=== PATIENT | female | born 1945 | race Caucasian/White ===

== ENCOUNTER 2016-04-01 17:28 | Emergency (ER) | payer MEDICARE, OTHER ==
--- NOTE | 2016-04-01 18:01 | ERNOTE ---
Medical Problem HPI - Narrative Date of Service: 04/01/16 - General Chief Complaint: General Assessment Time Seen by Provider: 04/01/16 17:50 Source: patient Exam Limitations: no limitations - Immun/Allergies/Home Medications Immunizations: IMMUNIZATION HX Immunizations Up to Date Yes History of Influenza Vaccine Yes Hx Pneumococcal Vaccination No Allergies/Adverse Reactions: Allergies cimetidine [From Tagamet] Allergy (Severe, Verified 04/01/16 17:37) rash, throat swells cimetidine HCl [From Tagamet] Allergy (Verified 04/01/16 17:37) famotidine [From Pepcid] Allergy (Verified 04/01/16 17:37) rash, throat swells omeprazole [From Prilosec] Allergy (Verified 04/01/16 17:37) Itching omeprazole magnesium [From Prilosec] Allergy (Verified 04/01/16 17:37) Itching ranitidine HCl [From Zantac] Allergy (Verified 04/01/16 17:37) rash; throat swells tagament Allergy (Uncoded 04/01/16 17:37) rash; throat swells laundry soaps Adverse Reaction (Mild, Uncoded 04/01/16 17:37) RASH Home Medications: HOME MEDICATIONS Albuterol Sulfate [Proair Hfa] 1 - 2 puff IH Q4H PRN 03/15/14 [Last Taken Unknown] Gabapentin [Neurontin] 600 mg PO BID 03/15/14 [Last Taken Unknown] Hydrocodone/Acetaminophen [Hydrocodon-Acetaminophn 10-325] 1 tab PO TID PRN [Last Taken Unknown] Levothyroxine Sodium [Synthroid] 175 mcg PO DAILY 03/15/14 [Last Taken Unknown] Sertraline HCl [Zoloft] 200 mg PO DAILY 03/15/14 [Last Taken Unknown] Simvastatin [Zocor] 40 mg PO HS 03/15/14 [Last Taken Unknown] Topiramate [Topamax] 200 mg PO BID 03/15/14 [Last Taken Unknown] Zolpidem Tartrate [Ambien] 10 mg PO HS PRN 03/15/14 [Last Taken Unknown] metFORMIN HCL [Glucophage] 500 mg PO BIDWM 03/15/14 [Last Taken Unknown] Hydrocodone/Acetaminophen [[place] 5-325 Tablet] 1 tab PO Q4H PRN #30 tab [Last Taken Unknown] Bupropion HCl [Wellbutrin Sr] 150 mg PO DAILY 04/01/16 [Last Taken Unknown] Gabapentin [Neurontin] 600 mg PO BID 04/01/16 [Last Taken Unknown] Morphine Sulfate [Morphine Sulfate ER] 30 mg PO BID 04/01/16 [Last Taken Unknown ] Omeprazole 20 mg PO DAILY 04/01/16 [Last Taken Unknown] - History of Present History Narrative: Pt. comes in with c/o large painful lump in her R upper thigh that shoots pain down her R leg. Pt. denies any fevers, redness, or drainage from lump. Pt. denies any alleviating or aggravating factors. Pt. denies any prehospital treatment. Review of Systems - Review of Systems Constitutional: Present: no symptoms reported. Absent: recent illness, fever, chills, weakness, fatigue EYE: Present: no symptoms reported ENT: Present: no symptoms reported Respiratory: Present: no symptoms reported. Absent: shortness of breath, cough , wheezing Cardiology: Present: no symptoms reported. Absent: chest pain, palpitations, edema Gastrointestinal/Abdominal: Present: no symptoms reported Genitourinary: Present: no symptoms reported Musculoskeletal: Present: muscle pain - R inner thigh Skin: Present: lumps - R inner thigh Neurological: Present: no symptoms reported. Absent: dizziness/light-headedness , numbness, tingling All Other Systems: All systems neg except as marked - Patient's Past Medical History Patient History - Medical: Anxiety, Arthritis, Diabetes Type 2, Depression, GERD , Hypothyroidism Patient History - Cancer: Thyroid, Cervical Patient History - Surgical Procedures: Appendectomy, Colonoscopy, Hysterectomy, Tubal Ligation - Social History Living Situations: other Smoking Status: Current every day smoker Alcohol Use: none Drug Use: none Physical Exam - Physical Exam General Appearance: Present: wd/wn, alert, no apparent distress Eye Exam: Normal inspection: bilateral, PERRL: bilateral, EOMI: bilateral Ears, Nose, Throat: Present: normal ENT inspection, hearing grossly normal, normal pharynx Neck: Present: normal inspection, nontender. Absent: lymphadenopathy (R), lymphadenopathy (L) Respiratory: Present: no respiratory distress, normal breath sounds, no accessory muscle use, chest nontender, lungs clear Cardiovascular/Chest: Present: regular rate, rhythm, no murmur, normal peripheral pulses Gastrointestinal/Abdominal: Present: normal bowel sounds, nontender, nondistended, soft, no organomegaly Back Exam: Present: normal inspection, normal range of motion, no CVA tenderness , no vertebral tenderness Extremity Exam: Present: normal range of motion, other - tenederness and swelling of baseball size firm nodule R inner thigh Neurological Exam: Present: alert, oriented, normal mood/affect, no motor/ sensory deficits, 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 Absent: pallor, skin rash ED Progress - Results and Orders Patient's Lab Results:: I have reviewed the patient's lab results. - Vital Signs Patient's Vital Signs:: I have reviewed the patient's vital signs. Vital Signs: Vital Signs 04/01/16 17:32 Temperature 36.6 C Pulse Rate 75 Respiratory 16 Rate Blood Pressure 131/80 O2 Sat by Pulse 95 Oximetry - CT/Ultrasound CT/Ultrasound Narrative: US positive for very large anechoic soft tissue mass and necrotic groin lymph nodes. Given pt. 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 - Progress/Reassessment Chief Complaint: General Assessment Progress:: Unchanged Departure - Departure Clinical Impression: Mass of right thigh, Lymphadenopathy Disposition: Home self-care Condition: Good Instructions: Lymphadenopathy Additional Instructions: Please call Dr Haque office in the morning to make an appointment to discuss biopsy of mass. If this gets worse please return to the ER. Referrals: Deric Moreno DO [Primary Care Provider] -
[2016-04-01 19:22] LABS: Hematocrit 40.6 % (37.0-47.0); Hemoglobin 13.3 gm/dL (12.5-16.0); Mean Cell Volume 93.1 fl (78-100); Mean Corpuscular Hemoglobin 30.5 pg (27-31); Mean Corpuscular Hgb Conc 32.8 g/dl (32-36); Mean Platelet Volume 9.2 fl (6.0-9.5); Neutrophil # 6.5 K/mm3 (1.3-6.0); Neutrophil % 74.6 % (42-75.0); Platelet Count 165 K/mm3 (150-450); Red Blood Count 4.36 M/mm3 (4.2-5.4); Red Cell Distribution Width 12.7 % (11.5-14.0); White Blood Count 8.7 K/mm3 (4.0-10.5)
[2016-04-01 19:35] LABS: Albumin * 3.5 gm/dl (3.4-5.0); Anion Gap 13.8 mmol/L (6.8-13.8); BUN/Creatinine Ratio 15.9 (9.0-21.6); Bilirubin, Total 0.3 mg/dL (0.0-1.1); Ca. Corrected For Albumin 8.5 mg/dL (8.4-10.2); Calcium * 8.4 mg/dL (7.9-10.9); Carbon Dioxide 26.5 mmol/L (24-32.6); Potassium 4.3 mmol/L (3.4-4.6); Total Protein 7.1 gm/dL (6.2-8.2)
[2016-04-01 20:25] VITALS: BP 125/47
== END 2016-04-01 20:26 | disposition home or self-care (01) ==
LOC: ER 17:28
DX: R22.41 Localized swelling, mass and lump, right lower limb (principal); R59.1 Generalized enlarged lymph nodes; Z85.41 Personal history of malignant neoplasm of cervix uteri; Z85.850 Personal history of malignant neoplasm of thyroid; F17.210 Nicotine dependence, cigarettes, uncomplicated; F41.9 Anxiety disorder, unspecified; E11.9 Type 2 diabetes mellitus without complications; E03.9 Hypothyroidism, unspecified; F32.9 Major depressive disorder, single episode, unspecified

== ENCOUNTER 2016-08-07 07:36 | Day surgery (SDC) | payer MEDICARE, OTHER ==
[~2016-08-07 07:36] MED LIST: RINGERS SOLUTION,LACTATED 1,000 ML IV PRN; ceFAZolin SODIUM 1 GM VIAL IV PRN
--- OUTSIDE RECORDS SUMMARY | 2016-08-07 07:40 | XMS REPORT | Continuity of Care Document ---
:1945 Author Organization [facility] ([facility]) Address [place] [address] Phone [phone] Care Team Providers Name Role Phone Deric Moreno Primary Care Provider [phone] Source Comments This disclosure is being made pursuant to the Care Everywhere program, applicable federal and state laws, and may not contain all informaitonavailable regarding this patient.[facility] ([facility]) Active Allergies and Adverse Reactions Allergen Noted Date Severity Reactions Comments Antacid/Antigas 04/11/2016 Rash Only OTC meds Current Medications Prescription Sig. Disp. Refills Start Date End Date Status levothyroxine 175 mcg Take 175 mcg by Active tablet mouth every morning before breakfast. omeprazole 20 mg extended Take 20 mg by mouth Active release capsule daily. metFORMIN 1,000 mg tablet Take 1,000 mg by Active mouth 2 times daily with meals. gabapentin 600 mg tablet Take 600 mg by Active mouth 3 times daily. SERTraline 100 mg tablet Take 100 mg by Active mouth daily. simvastatin 40 mg tablet Take 40 mg by mouth Active every evening. topiramate 50 mg tablet Take 100 mg by Active mouth 2 times daily. buPROPion (WELLBUTRIN XL) take 1 tablet (300 3 04/02/2016 Active 300 mg extended release mg) by oral route tablet 24 hour once daily for 30 days morpHINE 30 mg CR tablet Take 30 mg by mouth 0 03/20/2016 Active 2 times daily. HYDROcodone-acetaminophen TAKE 1 TAB DAILY 0 03/20/2016 Active 10-325 mg per tablet NEEDED zolpiDEM 10 mg tablet Take 10 mg by mouth 3 04/02/2016 Active at bedtime. Active Problems Problem Noted Date Mass of right thigh 04/11/2016 Social History Tobacco Use Types Packs/Day Years Used Date Current Every Day Smoker Cigarettes 2 40 Smokeless Tobacco: Never Used Tobacco Cessation:Ready to Quit: No; Counseling Given: No Comments: Alcohol Use Drinks/Week oz/Week Comments No Last Filed Vital Signs Vital Sign Reading Time Taken Blood Pressure 92/51 04/11/2016 12:19 PM TECHNOLOGY SUPPORT ANALYST Pulse 80 04/11/2016 12:19 PM TECHNOLOGY SUPPORT ANALYST Temperature 35.4 C (95.7 F) 04/11/2016 12:19 PM TECHNOLOGY SUPPORT ANALYST Respiratory Rate - - Height 1.575 m (5' 2.01") 04/11/2016 12:19 PM TECHNOLOGY SUPPORT ANALYST Weight 75.5 kg (166 lb 7.2 oz) 04/11/2016 12:19 PM TECHNOLOGY SUPPORT ANALYST Body Mass Index 30.44 04/11/2016 12:19 PM TECHNOLOGY SUPPORT ANALYST Oxygen Saturation - - Plan of Care Health Maintenance Due Date Last Done Comments HCV Screening 1945 Hepatitis B Vaccine (1 of 3 - Primary Series) 1945 Tdap Vaccine 1957 Lipid Disorder Screening 1964 Td Vaccine 1963 Mammogram 1986 Colonoscopy 11/21/1996 Zoster Vaccine 2006 Osteoporosis Screening (DXA Bone Density) 11/23/2011 Pneumococcal Vaccine (1 of 2 - PCV13) 11/23/2011 Influenza Vaccine: Seasonal (#1) 10/30/2015 Results from Last 3 Months Not on file
[2016-08-07] MEDS ORDERED: BUPIVACAINE HCL 50 ML VIAL IJ ONE (09:15)
[2016-08-07 10:33] VITALS: BP 127/60
--- NOTE | 2016-08-07 13:55 | OR ---
Operative Report - Dictated Report Narrative: Date: 08/07/2016 Physician: Samm Bautista M.D. Position Classification Manager: Gautam Campbell PA-C Preoperative diagnosis: Right thumb Trigger finger Postoperative diagnosis: Right thumb Trigger finger Procedure: Right thumb finger A1 star release Anesthesia: MAC Plus local Complications: None Estimated blood loss: Minimal Tourniquet time: 5 Minutes with forearm esmarch band Specimens: None Retained implants: None Drains: None Indications: Mrs. Donohue Is a 70 year-old female who has been followed in my clinic with complaints of trigger finger. Physical exam as demonstrated triggering of the finger. Conservative measures have failed including but not limited to passage of time, activity modification, medications, and injections. The risks, benefits, and alternatives were discussed in clinic. The risks being bleeding, infection, nerve, tendon, blood vessel injury, persistent pain, wound competitions, need for additional procedures, and persistent symptoms. Consent was obtained in the clinic. Procedure: After marking the correct extremity in the preoperative holding area, a timeout was performed in the operating room. IV antibiotics consisting of Ancef were administered prior to the procedure. A forearm esmarch tourniquet was applied to the operative upper arm. The arm was exsanguinated and esmarch band was applied 0.5% Marcaine without epinephrine was infused into the projected incision site at the palmar flexion crease over the metacarpal phalangeal joint in line with the digit. Using loupe magnification, a transverse incision in the appropriate palmar flexion crease in line with the digit. Blunt dissection was carried down through the subcutaneous tissues using bipolar cautery for hemostasis. Care was taken to protect the digital nerves. Staying midline along the flexor tendon, the A1 star was identified. A nataliia was made in the proximal edge of the A1 star and tenotomies were utilized in order to completely transect the A1 star. Care was to stay midline and avoid transection of the A2 star. Soft tissues overlying the flexor tendon proximal to the A1 star were also released ensuring that there were no other compressive structures contributing to the triggering. The finger was placed through range of motion and demonstrated no additional catching. The tendons were visualized and mobilized out of the wound, and did not demonstrate any gross pathology or masses that required debridement. The tendons were noted to be intact. Once was felt that we had decompressed the flexor tendons as they passed under the A1 star, the tourniquet was removed. Hemostasis was obtained with pressure and bipolar cautery. There was good return of color and capillary refill to the digit. Additional half percent Marcaine without epinephrine was infused into the skin edges. The wound was thoroughly irrigated. The skin was closed with interrupted 4-0 nylon. Sterile dressings consisting of Xeroform, 4 x 4, and Karen were applied. All sponge, needle, blade, and instrument counts were correct prior to closing the wounds. The patient was awoken and transferred to the postanesthesia care unit in stable condition.
== END 2016-08-07 07:37 | disposition home or self-care (01) ==
LOC: AMB 07:36
PROVIDERS: ATTEND Orthopaedic Surgery
PROC: 0LN70ZZ Release Right Hand Tendon, Open Approach (ICD-10-PCS; principal; 2016-08-07 09:15)
DX: M65.311 Trigger thumb, right thumb (principal); E11.9 Type 2 diabetes mellitus without complications; E03.9 Hypothyroidism, unspecified; J44.9 Chronic obstructive pulmonary disease, unspecified; F41.9 Anxiety disorder, unspecified; F32.9 Major depressive disorder, single episode, unspecified; C85.90 Non-Hodgkin lymphoma, unspecified, unspecified site; F17.200 Nicotine dependence, unspecified, uncomplicated; Z68.28 Body mass index [BMI] 28.0-28.9, adult